=== PATIENT | female | born 1980 | race Caucasian/White ===

== ENCOUNTER 2024-05-08 16:45 | Outpatient (RCR) | payer OTHER, SELFPAY | END 2024-06-05 09:45 | disposition home or self-care (01) | PROVIDERS: Visit Provider Orthopaedic Surgery | DX: M25.571 Pain in right ankle and joints of right foot (principal); M72.2 Plantar fascial fibromatosis; Z51.89 Encounter for other specified aftercare | CPT/HCPCS: 97110; 97140; 97161 ==

== ENCOUNTER 2024-12-16 21:46 | Emergency (ER) | payer OTHER, SELFPAY ==
--- OUTSIDE RECORDS SUMMARY | 2024-12-16 21:48 | XMS_ITS | Patient Health Record ---
Author Organization [facility] Address [address] [place] [address] Care Team Providers Care Sanitary Inspector Name Role Phone MarianKrish KhoiRussellRusty Unavailable [phone] Viki Garrison MD Unavailable Unavailable Allergies Allergen (clinical drug ingredient) Drug/Non Drug Allergy documented on EMR Reaction Allergy Type Onset Date Status morphine Morphine Unknown Drug Allergy Active Reason For Referral No Information Medications Medication SIG (Take, Route, Frequency, Duration) Notes Start Date End Date Status DULoxetine HCl 30 MG Capsule Delayed Release Particles 1 capsule Orally Once a day x 1 week, then twice a day; Duration: 30 days 12/22/2022 Active traMADol-Acetaminophen 37.5-325 MG Tablet TAKE 1 TABLET BY MOUTH THREE TIMES DAILY NEEDED FOR PAIN Oral; Duration: 7 Days Active methylPREDNISolone 4 MG Tabl et Therapy Pack FOLLOW PACKAGE DIRECTIONS Oral; Duration: 6 Days Active Meloxicam 7.5 MG Tablet Oral Active LORazepam 0.5 MG Tablet Oral; Duration: 1 Days Active Cyclobenzaprine HCl 5 MG Tablet Oral Active Social History Social History General Social Info Question Answer Notes Opioid Risk Tool Family history of substance abuse? No Personal history of substance abuse? No Age (jaspal box if 16-45)? Yes History of preadolescent sexual abuse? No Psychological disease? No Total score 1 Interpretation Low risk (unlikely to abuse opio ids) Alcohol Screening Did you have a drink containing alco hol in the past year? Yes How often did you have a drink containing alcohol in the past year? Two to four times a month (2 points) How many drinks did you have on a typical day when you were drinking in the past year? 1 or 2 (0 points) How often did you have six or more drinks on one occasion in the past year? Less than monthly (1 point) Points 3 Interpretation Positive Problems Problem Type SNOMED Code ICD Code Onset Dates Problem Status W/U Status Risk Notes Problem Pain of left knee joint (finding) (097622727316532) Pain in left knee (M25.562) Active confirmed Problem Degenerative disc disease (80789814) DDD (degenerative disc disease), lumbar (M51.36) Active confirmed Problem Paresthesia (finding) (44234640) Paresthesia of skin (R20.2) Active confirmed Problem Lumbar radiculopathy (779281957) Lumbar radiculopathy (M54.16) Active confirmed Plan Of Treatment No Information Insurance Providers Payer Name Payer Address Payer Phone Subscriber Number Group Number Insured Name Patient Relationship to Insured Coverage Start Date Coverage End Date [facility] [address] [address] [place] [address] [id number] Cari Miranda Self - patient is the insured [facility] [place] [address] [place] [address] [id number] Cari Miranda Self - patient is the insured Medical (General) History Medical History History ICD Code Genitourinary: Kidney stones Gastrointestinal: Acid reflux/Ulcer Psychology: Anxiety,Depression Surgical History Surgery Date(Month/Year) LASIK eye 2022 2022 Lithotripsy 2016 Kidney Stent 2014 Hospitalization History Reason Date(Month/Year) see surgical history
[2024-12-16 21:58] VITALS: BP 144/94; PULSE 100; RESP 18; TEMP 36.7; O2SAT 99; BMI 25.4
[2024-12-16] MEDS: ERYTHROMYCIN OPHTH OINT 3.5 GM 1 APPLIC EYE-LEFT (22:30)
--- OUTSIDE RECORDS SUMMARY | 2024-12-16 22:38 | XMS_ITS | Continuity of Care Document ---
Author Name [facility] Organization [facility] Care Team Providers Care Brand Marketing Manager Name Role Phone [facility] Unavailable Unavailable Problems Combined list of problems from Department of Defense and Veterans Affairs facilities. It does not include entries that were removed or entered in error. Problem Status Onset Date Problem Type Date of Resolution Comments Source Congestion Active Condition [facility] Daniela-Ariadna erty Cough Active Condition [facility] Ear pain Active Condition [facility] Gestational diabetes mellitus in , unspecified control Active Condition DoD sore throat Inactive Condition DoD visit for: screening exam depression Inactive Condition DoD rhinitis Active Condition DoD routine gynecological exam with cervical pap smear Inactive Condition DoD Administrative Evaluation Services Inactive Condition DoD other specified family circumstances Active Condition DoD normal delivery Inactive Condition DoD indic for care/interven rel to labor/deliv antepartum compl Inactive Condition DoD indication for care or intervention related to labor & deliv Inactive Condition DoD diabetes mellitus gestational antepartum condition or prior complicated delivery Active Condition DoD Patient Education - Diabetes Active Condition DoD Patient Education - Proper Disposal Of Sharp Equipment Active Condition DoD Diabetes Patient Education - Blood Glucose Monitor Home Active Condition DoD glucose intolerance Active Condition Do D marginal placenta previa - antepartum condition / complic Inactive Condition DoD complication: abnormal glucose tolerance, antepartum condition or prior complicated delivery Active Condition DoD nonspecific abnormal findings screening Active Condition DoD Inactive Condition DoD normal Inactive Condition DoD Brace Inactive Condition DoD low implantation of placenta Inactive Condition DoD constipation Inactive Condition DoD lumbago with sciatica Active Condition DoD upper respiratory infection Inactive Condition DoD routine checkup - second trimester Inactive Condition DoD heartburn with regurgitation Active Condition DoD preg complications: antepartum cond or prior comp delivery Inactive Condition DoD anxiety Active Condition DoD complications: mental disorder, antepartum condition or prior complicated delivery Active Condition DoD Patient Counseling: Active Condition Do D Education Initial Visit Active Condition DoD Supervision Of Normal Inactive Condition DoD bereavement without complications loss of child Active Condition DoD spontaneous Inactive Condition DoD Test Positive Inactive Condition DoD allergic reaction Inactive Condition DoD urticaria Active Condition DoD backache Active Condition DoD routine pre-employment screening examination Active Condition DoD visit for: fertility testing Inactive Condition DoD Need For Vaccination Against DTP Inactive Condition DoD depression Active Condition [facility] visit for: administrative purpose Inactive Condition DoD Need For Vaccination Against Influenza Inactive Condition DoD Cervical Pap Smear Inactive Condition Do D routine history and physical adult (18 - 64 yrs) Inactive Condition DoD Medications Combined list of outpatient medications from Department of Defense and Veterans Affairs facilities.Medications provided include 1) outpatient medications from the last 15 months, and 2) patient-reported medications. Medication Details Route Status Indication(s) Patie nt Instructions Prescription Expires Prescription Number Last Dispense Date Ordering Provider Order Date Order Qty Source Augmentin 875 mg-125 mg oral tablet 1 tab(s), Oral, every 12 hr, X 7 days, # 14 tab(s), 0 total refill(s ), Acute, 05/19/21 12:05:00 PM CDT, Pharmacy : [facility] Oral (given by mouth) Complet ed Chronic sinusitis, unspecified 05/19/2021 2 2021 14.0 0089A-A Daniela Arabella cyclobenzap rine 5 mg oral tablet cycloben zaprine 5 mg oral tablet Start Date: 09/12/20 Status: Ordered Medicati on Dispense Status: Complete d Total Allowed Fills: 1 Fills Dispense d: 0 Ordered 2020 No Facilit y Access cyclobenzap rine 5 mg oral tablet cycloben zaprine 5 mg oral tablet Start Date: 12/24/20 Status: Ordered Medicati on Dispense Status: Complete d Total Allowed Fills: 1 Fills Dispense d: 0 Ordered 2020 No Facilit y Access DULoxetine 20 mg oral delayed release capsule DULoxeti ne 20 mg oral delayed release capsule Start Date: 07/11/20 Status: Ordered Medicati on Dispense Status: Complete d Total Allowed Fills: 1 Fills Dispense d: 0 Ordered 2020 No Facilit y Access DULoxetine 30 mg oral delayed release capsule DULoxeti ne 30 mg oral delayed release capsule Start Date: 09/01/20 Status: Ordered Medicati on Dispense Status: Complete d Total Allowed Fills: 1 Fills Dispense d: 0 Ordered 2020 No Facilit y Access DULoxetine 60 mg oral delayed release capsule DULoxeti ne 60 mg oral delayed release capsule Start Date: 12/24/20 Status: Ordered Medicati on Dispense Status: Complete d Total Allowed Fills: 1 Fills Dispense d: 0 Ordered 2020 No Facilit y Access ibuprofen 800 mg oral tablet 1 tab(s), Oral, every 8 hr, # 30 tab(s), 0 total refill(s ), Acute, 05/12/21 11:00:00 PM CDT, Pharmacy : [facility] Oral (given by mouth) Complet ed 05/13/2021 2 2021 30.0 0089A-A [facility] [place] meloxicam 15 mg oral tablet meloxica m 15 mg oral tablet Start Date: 01/19/21 Status: Ordered Medicati on Dispense Status: Complete d Total Allowed Fills: 1 Fills Dispense d: 0 Ordered 2020 No Facilit y Access meloxicam 15 mg oral tablet meloxica m 15 mg oral tablet Start Date: 10/26/20 Status: Ordered Medicati on Dispense Status: Complete d Total Allowed Fills: 1 Fills Dispense d: 0 Ordered 2020 No Facilit y Access meloxicam 15 mg oral tablet meloxica m 15 mg oral tablet Start Date: 08/27/20 Status: Ordered Medicati on Dispense Status: Complete d Total Allowed Fills: 1 Fills Dispense d: 0 Ordered 2020 No Facilit y Access methylPREDN ISolone 4 mg oral tablet methylPR EDNISolo ne 4 mg oral tablet Start Date: 09/12/20 Status: Ordered Medicati on Dispense Status: Complete d Total Allowed Fills: 1 Fills Dispense d: 0 Ordered 2020 No Facilit y Access omeprazole 20 mg oral delayed release capsule omeprazo le 20 mg oral delayed release capsule Start Date: 12/24/20 Status: Ordered Medicati on Dispense Status: Complete d Total Allowed Fills: 1 Fills Dispense d: 0 Ordered 2020 No Facilit y Access ondansetron 4 mg oral tablet, disintegrat ing ondanset dwayne 4 mg oral tablet, disinteg rating Start Date: 12/24/20 Status: Ordered Medicati on Dispense Status: Complete d Total Allowed Fills: 1 Fills Dispense d: 0 Ordered 2020 No Facilit y Access Robitussin Cough + Chest Congestion DM Maximum Strength 10 mg-200 mg oral capsule 2 cap(s), Oral, every 4 hr, # 30 cap(s), 0 total refill(s ), Acute, Pharmacy : [facility] Oral (given by mouth) Complet ed Chronic sinusitis, unspecified 05/13/2021 2 2021 30.0 0089A-A [facility] [facility] Allergies, Adverse Reactions, Alerts Combined list of allergies from Department of Defense and Veterans Affairs facilities. It does not include entries that were removed or entered in error. Substance Category Reaction Severity Reaction type Status Date Reported Comments Source No Known Allergies Drug allergy (disorder) active 05/18/2013 [facility] Immunizations Combined list of available immunizations from the Department of Defense and Veterans Affairs facilities. Immunization Series Date Given Administered By Site Reaction Lot Number CVX Code Drug Envelope Stamping Machine Operator Status Comments Source tetanus, diphtheria, acellular pertu is 2014 zYueef t Arm [id number] 115 GlaxoSmithKli ne complet ed tetanus, diphtheri a, acellular pertussis 11/28/14 Given Ambulat ory Pharmac y influenza, injectable, quadrivalent- pf 2014 zzLef t Arm [id number] 150 GlaxoSmithKli ne complet ed influenza , injectabl e, quadrival ent-pf 11/28/14 Given Ambulat ory Pharmac y tetanus toxoid, reduced diphtheria toxoid, and acellular pertu is vaccine, adsorbed 1 2014 PAL CERVANTES [id number] 115 [employer] ([facility]) complet ed tetanus toxoid, reduced diphtheri a toxoid, and acellular pertussis vaccine, adsorbed DoD Influenza, injectable, quadrivalent, preservative free 1 2014 PAL CERVANTES [id number] 150 [employer]Kline ([facility]) complet ed Influenza , injectabl e, quadrival ent, preservat ree free DoD tuberculin purified protein derivative 2011 zzLef t Arm [id number] 96 sanofi pasteur complet ed tuberculi n purified protein derivativ e 09/07/11 Given Ambulat ory Pharmac y tuberculin skin test; purified protein derivative solution, intradermal 0 2011 Unknown, Provider [id number] 96 Sanofi Pasteur ([facility]) complet ed tuberculi n skin test; purified protein derivativ e solution, intraderm al DoD tetanus, diphtheria, acellular pertu is 2011 [facility] Arm [id number] 115 sanofi pasteur complet ed tetanus, diphtheri a, acellular pertussis 04/03/11 Given Ambulat ory Pharmac y tetanus toxoid, reduced diphtheria toxoid, and acellular pertu is vaccine, adsorbed 0 2011 Unknown, Provider [id number] [id number] 115 Sanofi Pasteur ([facility]) complet ed tetanus toxoid, reduced diphtheri a toxoid, and acellular pertussis vaccine, adsorbed DoD influenza virus vaccine,split 2010 [facility] Arm [id number] 15 sanofi pasteur complet ed influenza virus vaccine,s plit 12/25/10 Given Ambulat ory Pharmac y influenza virus vaccine, split virus (incl. purified surface antigen)-reti red CODE 0 2010 Unknown, Provider [id number] Sanofi Pasteur ([facility]) complet ed influenza virus vaccine, split virus (incl. purified surface antigen)- retired CODE DoD Vital Signs Combined list of inpatient and outpatient Vital Signs from Department of Defense and Veterans Affairs, ranging from 12 months to all on record, depending upon the facility. Vital Sign Value Date Comments Source Respiratory Rate 18 br/min 05/12/2021 16:11:00 [facility] [employer] [employer] Temperature Tympanic 36.3 Loretta 05/12/2021 16:11:00 [facility] Systolic Blood Pressure 135 mm[Hg] 05/12/2021 16:11:00 [facility] [facility] Diastolic Blood Pressure 92 mm[Hg] 05/12/2021 16:11:00 [facility] [employer] Peripheral Pulse Rate 96 bpm 05/12/2021 16:11:00 [facility] [facility] Encounters Combined list of: 1) Encounters from Department of Veterans Affairs facilities going backup to the last 18 months, not all VA inpatient encounters are included; 2) Encounters from the Department of Defense facilities going backup to 280 months. Location Location Details Encounter Type Encounter Number Reason For Visit Attending Provider ADM Date DC Date Status Disposition Source [place] OUTPATIENT [id number] physica l/intia l DOMINGO REYES 12/25 Released w/o Limitations [place] [facility] [place] TELE CONSULT [id number] Psych referra l MENDY FERNANDEZ 01/08 [place] for Appointment [place] [facility] [place] [facility] [facility] [place] [facility] TELE CONSULT [id number] medicat ion evaluat ion DOMINGO REYES 02/11 [place] [place] [facility] [place] [facility] OUTPATIENT [id number] IMMS DOMINGO REYES 04/03 Released w/o Limitations [place] [place] [facility] OUTPATIENT [id number] Fertili zation Check up DOMINGO REYES 06/09 Released w/o Limitations [place] [place] [place] [facility] [facility] OUTPATIENT [id number] EMPLOYM ENT LETICIA FAULKNER 09/06 Released w/o Limitations [place] [place] [facility]Daysi gency Room[facility] OUTPATIENT [id number] ARIK DUNN 09/12 Released w/o Limitations [place] [facility]Em ergency [facility]) [place] [place] [facility] OUTPATIENT [id number] out-domi ak od sussy/f eet anjali /ANG Interiano 09/13 Released w/o Limitations [place] [facility] [place] [facility] [place] TELE CONSULT [id number] Pregnan cy test positiv e DAREK ROQUE 11/03 [place] [place] [facility] [place])([facility] gen Room) OUTPATIENT [id number] NILDA CARRANZA 11/07 Released w/o Limitations [place] ([facility])( ergency Room) [place] OUTPATIENT [id number] f/u SAB//Wo ANGELA Morse PE 11/10 Released w/o Limitations [place] [place] [facility] [place] TELE CONSULT [id number] Notes Entered by: DAREK BERGMAN 12 Jul 2012 1041 ------- ------- ------- ------- -- Pregnan cy test positiv e DAREK ROQUE 07/12 [place] [place])(Obst etrics [facility]) OUTPATIENT [id number] Pregnan cy Test Positiv e OMA GALEANA 07/19 Released w/o Limitations [place] ([facility])([facility]) [place])([facility] etrics [facility]-Con) TELE CONSULT [id number] Notes Entered by: JONAH GREY 04 Aug 2012 0958 ------- ------- ------- ------- -- edc 30 Feb c/o pubic bone pain after bowling , denies painful voiding , JONAH GREY 08/04 Released to Self Care [place])(Ob stetric s T-Con) [place] [facility] OB [facility]) OUTPATIENT [id number] NOB PE w/LMP 06/02/12 KUMAR 03/09/13 @ 11 weeks Thank you FERNANDO MCGREGOR 08/22 Released w/o Limitations [place] [facility]) [place] [facility])([facility]) OUTPATIENT [id number] 16 wk f/u, kumar Feb ROGELIO GROVER 09/22 Released w/o Limitations [place] [facility]) [place] etrics T-Con) TELE CONSULT [id number] Notes Entered by: JONAH GREY 24 Oct 2012 0858 ------- ------- ------- ------- -- edc 30 Feb c/o sinus congest ion, no r/w otc rx, c/o diarrhe a, nausea, JONAH GREY 10/24 Referred for Appointment [place])(Ob rusttric s T-Con) [place])([facility] etrics [facility]) OUTPATIENT [id number] edc 30 Feb c/o sinus congest ion, no r/w otc rx, c/o diarrhe a, nausea, RAMON WORRELL Olive 10/24 Released w/o Limitations [place] [facility])(Ob [facility]) [place] [facility])([facility]) OUTPATIENT [id number] kumar mar 09 22 wks f/u SARTHAK MEYER 11/03 Released w/o Limitations [place] [facility])([facility]) [place])(Orth opedics) OUTPATIENT [id number] Materni ty Belt x1 DOMINGO HAYDEN 11/10 Released w/o Limitations [place])(Or thopedi cs) [place])([facility]i [facility]) OUTPATIENT [id number] MARY TRUONG 11/17 Released w/o Limitations [place] [facility] [place])([facility] OB [facility]) TELE CONSULT [id number] Notes Entered by: VINEET MEYER 11 Dec 2012 1109 ------- ------- ------- ------- -- ELEVATE D ONE HOUR GCT SARTHAK MEYER 12/11 [place]) [place])([facility]) OUTPATIENT [id number] 28 wk f/u, kumar 30 CLEMENTINA Wagner 12/14 Released w/o Limitations [place]) [place]) TELE CONSULT [id number] Notes Entered by: VINEET MEYER 17 Dec 2012 1154 ------- ------- ------- ------- -- MARGINA L PLACENT A PREVIA SARTHAK MEYER 12/17 [place] ([facility] [facility]) [place])(Ante - in L&D) TELE CONSULT [id number] Notes Entered by: VINEET MEYER 27 Dec 2012 1347 ------- ------- ------- ------- -- FOLLOW UP FOR MARGINA L PREVIA SARTHAK MEYER 12/27 [place] ([facility])(An te-Part um in L&D) [place])(Obst etrics [facility]) OUTPATIENT [id number] Notes Entered by: CHAPIN RITCHIE 04 Jan 2013 0835 ------- ------- ------- ------- -- JANET Plaza 01/04 Released w/o Limitations [place])(Ob stetric s -[facility]) [place])([facility] OB [facility]) OUTPATIENT [id number] EDC:Feb WEEKS CLEMENTINA MARTINES 01/13 Released w/o Limitations [place] [facility])([facility] OB [facility]) [place] [facility])([facility]) OUTPATIENT [id number] 36 WK F/U, KUMAR Feb CLEMENTINA MARTINES 02/10 Released w/o Limitations [place] [facility])([facility] OB [facility]) [place] [facility])(Obst etrics T-Con) TELE CONSULT [id number] Notes Entered by: JONAH GREY 22 Feb 2013 0807 ------- ------- ------- ------- -- edc Feb c/o sonali garcia , states abd has remaine d tight since 299 JONAH GREY 02/22 Immediate Referral [place])(Ob stetric s T-Con) [place] [facility])(Ante - in L&D) OUTPATIENT [id number] Notes Entered by: DELISA GAMEZ 22 Feb 2013 0939 ------- ------- ------- ------- -- pt JACQUELYN French 02/22 Released w/o Limitations [place] [facility])(An te-Part um in L&D) [place] [facility]) OUTPATIENT [id number] 38 WK F/U, KUMAR Feb ADILSON PAINTING 02/24 Released w/o Limitations [place] [facility])([facility] OB [facility]) [place] [facility])([facility] OB [facility]) TELE CONSULT [id number] Notes Entered by: ANGELA SALAZAR 27 Feb 2013 1543 ------- ------- ------- ------- -- repeat u/s for CLEMENTINA Maya Ron 02/27 [place] ([facility])([facility] OB [facility]) [place])([facility]) OUTPATIENT [id number] 39 WK F/U, KUMAR Feb MITCHSARTHAK CAMP CLARI 03/03 Released w/o Limitations [place])([facility]) [facility] DIRECT TO MTF FROM OTHER THAN ER OR APU [id number] EMILY GLASS Yannick 03/09 DISCHARGED HOME [facility] [place])(Ante - in L&D) OUTPATIENT [id number] Notes Entered by: DAXA JEFFERY 09 Mar 2013 1022 ------- ------- ------- ------- -- pt says ctx 2-3 min apart and EMILY Roman 03/09 Admitted [place] ([facility])(An te-Part um in L&D) [place])(Gene ral Surgery) INPATIENT [id number] Notes Entered by: ADELINA CALLEJAS 09 Mar 2013 1425 ------- ------- ------- ------- -- labor pain BRYCE GEIGER 03/09 Inpatient- Still a Patient [place] ([facility])(Ge neral Surgery ) [place])(Obst etrics -[facility]) TELE CONSULT [id number] Notes Entered by: OSMAN IRBY 20 Mar 2013 1619 ------- ------- ------- ------- -- PP JANET Flannery 03/20 Referred for Appointment [place])(Ob stetric s [facility]) [place] OUTPATIENT [id number] PP checkup MELANY ALBRECHT S 04/27 Released w/o Limitations [place]) [place]) OUTPATIENT [id number] SERGIO Roper 05/15 Released w/o Limitations [place]) [place]) OUTPATIENT [id number] Notes Entered by: BONITA STEVEN 16 May 2013 1354 ------- ------- ------- ------- -- STREP SERGIO RICH 05/16 Released w/o Limitations [place] [place]) TELE CONSULT [id number] Notes Entered by: ABHINAV HODGSON I 27 Jun 2013 1003 ------- ------- ------- ------- -- Relay Health - Lactati on Issue TOREY HODGSON I 06/27 [place] [place]) OUTPATIENT [id number] ft pain MELANY ALBRECHT S 07/28 Released w/o Limitations [place]) [place]) TELE CONSULT [id number] Notes Entered by: NAZ MALONEY 25 Sep 2013 1648 ------- ------- ------- ------- -- ANG Douglas 09/25 [place] [place] OUTPATIENT [id number] back/hi p pain ANGELA MOJICA 05/15 Released w/o Limitations [place]) [place]) TELE CONSULT [id number] Notes Entered by: KRYSTINA MONROE 13 Jun 2014 1531 ------- ------- ------- ------- -- x ray results ANGELA MOJICA 06/13 [place]) [place]) TELE CONSULT [id number] Notes Entered by: BONITA STEVEN 21 Jun 2014 1533 ------- ------- ------- ------- -- hcg/8 days late MELANY ALBRECHT 06/21 [place] [place]) OUTPATIENT [id number] f/u back and hip pain MELANY ALBRECHT S 06/21 Released w/o Limitations [place]) [place])([facility]) OUTPATIENT [id number] est ISA Obrien 07/03 Released w/o Limitations [place]) [place])([facility]) OUTPATIENT [id number] Reporte d home pregnan cy test was positiv e EDC:FEB 7 WEEKS TUYET ROSALES 07/03 Released w/o Limitations [place])([facility]) [place])([facility] Clinic) OUTPATIENT [id number] new ob physica Feb 2015 CAROLYN MAIN Yareli 08/02 Released w/o Limitations [place] [facility])([facility] OB [facility]) [place] [facility])(Mate rnal Med) OUTPATIENT [id number] ELDERLY MULTIGR [place] - ANTEPAR TORRIE CONDITI ON OR COMPLIC ATION GAEL AMIN 08/15 Released w/o Limitations [place] [facility])(Ma ternal Med) [place] [facility])(Mate rnal Med) TELE CONSULT [id number] Notes Entered by: GAEL AMIN 21 Aug 2014 1057 ------- ------- ------- ------- -- lab results GAEL AMIN 08/21 [place] ([facility])(Ma ternal Med) [place] [facility])([facility] OB Clinic) OUTPATIENT [id number] kumar;5ja n16 MAINCAROLYN BURT Yareli 09/03 Released w/o Limitations [place] [facility] [facility] [place] [facility])(Obst etrics T-Con) TELE CONSULT [id number] TUYET ROSALES 09/21 Referred for Appointment [place] [facility])([facility] T-Con) [facility] [facility])(Obst etrics -[facility]) OUTPATIENT [id number] 19 3/7 wks c/o back spasms; reinjur ed bk; d/c from PT x2-3wks ago; no meds PARMINDER SANCHEZ 09/21 Released w/o Limitations [place] [facility]) [place] [facility])(Mate rnal Med) OUTPATIENT [id number] EDC 5 FEBAURY 15; PT RESCHED ULED APPT GAEL AMIN 09/21 Released w/o Limitations [place] ([facility])(Nd ternal Med) [place] [facility])(Ante - in L&D) OUTPATIENT [id number] Notes Entered by: Sony INMAN 04 Oct 2014 1028 ------- ------- ------- ------- -- ashley vidal with kleber on CAROLYN MAIN 10/04 Released w/o Limitations [place] ([facility])(An te-Part um in L&D) [place] ([facility])(Ante - in L&D) OUTPATIENT [id number] Notes Entered by: Sony INMAN 13 Oct 2014 1334 ------- ------- ------- ------- -- right flank pain CAROLYN MAIN 10/13 Released w/o Limitations [place] ([facility])(An te-Part um in L&D) [place] ([facility])(Obst etrics T-Con) TELE CONSULT [id number] Notes Entered by: STEFANI DECKER 22 Oct 2014 0828 ------- ------- ------- ------- -- [id number] with KUMAR 13 Feb 2015 calling with c/o BLAKE Hernandez 10/22 Released to Self Care [place] ([facility])(Ob stetric s T-Con) [place] ([facility])(Ante - in L&D) OUTPATIENT [id number] Notes Entered by: Sony INMAN 22 Oct 2014 1228 ------- ------- ------- ------- -- sophie vidal and ROGELIO Stanford 10/22 Released w/o Limitations [place] ([facility])(An te-Part um in L&D) [place] [facility])([facility] OB [facility]) OUTPATIENT [id number] EDC:MAR 03 WEEKS CAROLYN MAIN 10/25 Released w/o Limitations [place] [facility])([facility]) [place] [facility] TELE CONSULT [id number] Notes Entered by: Ron GARDUNO 02 Nov 2014 1236 ------- ------- ------- ------- -- CAROLYN Marcelino 11/02 [place] [facility]) [place] [facility]te - [facility] L&D) OUTPATIENT [id number] Notes Entered by: NAZ ERICKSON 05 Nov 2014 0328 ------- ------- ------- ------- -- contrac tions every 15 minutes PARMINDER SANCHEZ 11/05 Released w/o Limitations [place] ([facility])(An te-Part um in L&D) [place] [facility]) OUTPATIENT [id number] kumar;5ja n16 CAROLYN MAIN 11/22 Released w/o Limitations [place] [facility]) [place] ([facility])(Outp t Nutrition Clinic) OUTPATIENT [id number] GDM JAMI GRIDER 11/28 Released w/o Limitations [place] [facility]Ou tpt Nutriti on Clinic) [place] [facility] [id number] Notes Entered by: KEVYN SHERMAN 28 Nov 2014 1347 ------- ------- ------- ------- -- GDM LAURA Caicedo 11/28 Released w/o Limitations [place] ([facility])(Ob stetric [facility]) [place] ([facility])(Ruben rgy) OUTPATIENT [id number] Notes Entered by: ROGELIO GRIER 28 Nov 2014 1437 ------- ------- ------- ------- -- t dap and flu shot GAYLE ARRIETA L 11/28 Released w/o Limitations [place] ([facility])(Darrius lerjoselito) [place] ([facility])(Teto rnal Med) OUTPATIENT [id number] 10-12 WK F/U FOR GROWTH; EDC FEBRUARY 23 BRENNANGAEL Yannick 12/04 Released w/o Limitations [place] ([facility])(Nd ternal Med) [place] ([facility])([facility] - OB Clinic) OUTPATIENT [id number] edc Feb CAROLYN MAIN 12/06 Released w/o Limitations [place] ([facility])([facility] OB [facility]) [place] ([facility])(Obst etrics T-Con) TELE CONSULT [id number] Notes Entered by: JONAH GREY 25 Dec 2014 1302 ------- ------- ------- ------- -- EDCC Feb C/O LOWER BACK PAIN, CRAMPIN G, DENIES LOF, DFM JONAH GREY 12/25 Immediate Referral [place] ([facility])(Ob stetric s T-Con) [place] ([facility])(Ante - in L&D) OUTPATIENT [id number] pt says gabriela, ctx and DFM EGRALDO WELLS 12/25 Released w/o Limitations [place] ([facility])(An te-Part um in L&D) [place] ([facility])([facility] OB [facility]) OUTPATIENT [id number] 32wks fu kumar [id number] KAY MACHADO 12/27 Released w/o Limitations [place] ([facility])([facility]) [place] ([facility])(Ante - in L&D) OUTPATIENT [id number] Notes Entered by: TATE KEENAN E 28 Dec 2014 0942 ------- ------- ------- ------- -- severe kidney pain and difficu lty voiding BETTY STEVENS S 12/28 Released w/o Limitations [place] ([facility])(An te-Part um in L&D) [place] [facility])(Ante - in L&D) OUTPATIENT [id number] Severe kidney stones JACQUELYN MCINTOSH 01/02 Released w/o Limitations [place] ([facility])(An te-Part um in L&D) [place] [facility])(Ante - in L&D) OUTPATIENT [id number] Notes Entered by: Konstantin CASE 04 Jan 2015 2335 ------- ------- ------- ------- -- kidney pain TINYLVEY CLARK Yannick 01/05 Released w/o Limitations [place] ([facility])(An te-Part um in L&D) [place] [facility])(Obst etrics T-Con) TELE CONSULT [id number] Notes Entered by: JONAH GREY 07 Jan 2015 0831 ------- ------- ------- ------- -- EDC 6 FEB F/U FROM KIDNEY PAIN, [place] FOR UTI JONAH GREY 01/07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 04/03/14). [facility] Influenza Split Virus Vaccine IM Preserv Free 0.5mL Dosage Quadrivalent 2014 PAL CERVANTES Influenza Seasonal, injectable quadrivalent - preservative free; Series #: 1; .5 mL; IM; Left Arm; Mfg: [employer]; Lot: [id number]; VIS given (Mitra: 09/14/2014). [facility] Immunization Administration By Injection, One Vaccine Immunization Administration By Injection, One Vaccine 36882 2014 HELENPAL BHATIA [facility] Immunization Administration By Injection, Each Additional Vaccine Immunization Administration By Injection, Each Additional Vaccine 18637 2014 PAL CERVANTES [facility] Medical Nutrition Therapy Group (2 or More Individuals) Each 30 Minutes Medical Nutrition Therapy Group (2 or More Individuals) Each 30 Minutes 97797 2014 JAMI GRIDER 60 minutes [facility] Patient Counseling Medical Management Two To Four Patients Patient Counseling Medical Management Two To Four Patients 23932 2014 PEBBLES FARRAR [facility] OB Services Antepartum Care Only Subsequent Single Visit OB Services Antepartum Care Only Subsequent Single Visit 0502F 2014 CAROLYN MAIN Vaginal [place] Smear Vaginal [place] Smear 95605 2014 ROGELIO GROVER [facility] Transabd Ultrasound W/ Exam Single Or First Gestation Transabd Ultrasound W/ Exam Single Or First Gestation 58957 2014 GAEL AMIN OB Services Antepartum Care Only Subsequent Single Visit OB Services Antepartum Care Only Subsequent Single Visit 0502F 2014 CAROLYN MAIN US OB Fetus Nuchal Translucency 1st Trimester Single / First Gestation US OB Fetus Nuchal Translucency 1st Trimester Single / First Gestation 74513 2014 GAEL AMIN Transabdominal Ultrasound Single Or First Gestation Transabdominal Ultrasound Single Or First Gestation 16115 2014 GAEL AMIN OB Services Antepartum Care Only First Visit, With Report OB Services Antepartum Care Only First Visit, With Report 0500F 2014 CAROLYN MAIN Ultrasound Obstetric Limited Evaluation Ultrasound Obstetric Limited Evaluation 54116 2014 CAROLNY MAIN Ultrasound Obstetric Limited Evaluation Ultrasound Obstetric Limited Evaluation 50833 2014 ISA JAY [facility] Psychotherapy Individual Approximately 30 Minutes 2013 CUCO WILBURN [facility] Screening papanicolaou smear; obtaining, preparing and conveyance of cervical or vaginal smear to laboratory Screening papanicolaou smear; obtaining, preparing and conveyance of cervical or vaginal smear to laboratory Q0091 2013 MELANY ALBRECHT Dominic [facility] Cervical Pap Smear Cervical Pap Smear 23981 2013 ALBRECHTKALEB ROJASYuval Alfaro [facility] Psychotherapy Individual Approximately 30 Minutes 2013 CUCO WILBURN [facility] Psychotherapy Individual Approximately 30 Minutes 2013 CUCO WILBURN [facility] Psychotherapy Individual Approximately 30 Minutes 2013 CUCO WILBURN [facility] Psychotherapy Individual Approximately 30 Minutes 2013 CUCO WILBURN [facility] Psychiatric Diagnostic Evaluation Psychiatric Diagnostic Evaluation 29860 2013 CUCO WILBURN Epidural Anesthesia For Labor And Vaginal Delivery Epidural Anesthesia For Labor And Vaginal Delivery 14196 2013 BRYCE GEIGER EPIDURAL PLACEMENT NOTE Patient ID,chart and labs reviewed consent confirmed.Neurax ial anesthesthesia technique to include risks and benefits discussed and pt. understands. Pt. denies pre-existing disease, condition or surgery that would preclude neuraxial anesthesia. IV in place B/P and oximeter attached suction and oxygen available. Sitting position, prep with chloraprep x 1, local with 1% lido at L2-3 interspace, 18gauge tuohy place using MESERET technique with saline. Needle place to 5cm continuous epidural cath to 10cm, test dose with lido1.5% 3ml neg. cath secured and sterile dressing applied . patient tolerated procedure well and no complications. 10ml bolus of bupivicaine 0.125% with fentanyl 2mcg/ml. Preprocedure diagnosis = labor Pstprocedure diagnosis = labor analgesia Findings = none EBL = minimal Specimen = none Yordy Geiger CRNA [facility] OB Services Antepartum Care Only Subsequent Single Visit OB Services Antepartum Care Only Subsequent Single Visit 0502F 2013 SARTHAK MEYER [facility] OB Services Antepartum Care Only Subsequent Single Visit OB Services Antepartum Care Only Subsequent Single Visit 0502F 2013 ADILSON PAINTING [facility] OB Services Antepartum Care Only Subsequent Single Visit OB Services Antepartum Care Only Subsequent Single Visit 0502F 2013 CLEMENTINA MARTINES [facility] OB Services Antepartum Care Only Subsequent Single Visit OB Services Antepartum Care Only Subsequent Single Visit 0502F 2012 CLEMENTINA MARTINES [facility] OB Services Antepartum Care Only Subsequent Single Visit OB Services Antepartum Care Only Subsequent Single Visit 0502F 2012 CLEMENTINA MARTINES [facility] Lumbar-sacral orthosis, flexible, provides lumbo-sacral support, posterior extends from sacrococcygeal junction to T-9 vertebra, produces intracavitary pre ure to reduce load on the intervertebral discs, includes straps, closures, may include stays, shoulder straps, pendulous abdomen design, prefabricated, [id number] Lumbar-sacral orthosis, flexible, provides lumbo-sacral support, posterior extends from sacrococcygeal junction to T-9 vertebra, produces intracavitary pressure to reduce load on the intervertebral discs, includes straps, closures, may include stays, shoulder straps, pendulous abdomen design, prefabricated, [id number] L0628 2012 DOMINGO HAYDEN maternity support [facility] OB Services Antepartum Care Only Subsequent Single Visit OB Services Antepartum Care Only Subsequent Single Visit 0502F 2012 SARTHAK MEYER [facility] OB Services Antepartum Care Only Subsequent Single Visit OB Services Antepartum Care Only Subsequent Single Visit 0502F 2012 DOMINGO LEWIS [facility] Ultrasound Obstetric Limited Evaluation Ultrasound Obstetric Limited Evaluation 26695 2012 DOMINGO LEWIS [facility] Ultrasound Obstetric Limited Evaluation Ultrasound Obstetric Limited Evaluation 82616 2012 ROGELIO GROVER [facility] OB Services Antepartum Care Only Subsequent Single Visit OB Services Antepartum Care Only Subsequent Single Visit 0502F 2012 ROGELIO GROVER [facility] OB Services Antepartum Care Only First Visit, With Report OB Services Antepartum Care Only First Visit, With Report 0500F 2012 FERNANDO MCGREGOR [facility] Psychotherapy Individual Approximately 30 Minutes 2012 [facility] [place] DoD Psychotherapy Individual Approximately 30 Minutes 2012 [facility] Pulse Oximetry Pulse Oximetry 64578 2011 ADILSON BAJWA 98% DoD Psychotherapy Individual Approximately 30 Minutes Psychotherapy Individual Approximately 30 Minutes 93559 2011 [facility] [place] Skin Test Anergy Tuberculin Intradermal Skin Test Anergy Tuberculin Intradermal 04726 07/30/ 2012 LETICIA JAMES [facility] Psychotherapy Individual Approximately 45 Minutes Psychotherapy Individual Approximately 45 Minutes 47369 2011 CUCO WIL[place]URN [facility] Psychotherapy Individual Approximately 45 Minutes Psychotherapy Individual Approximately 45 Minutes 61598 2011 CUCO WIL[place]URN [facility] Psychotherapy Individual Approximately 45 Minutes Psychotherapy Individual Approximately 45 Minutes 43092 2011 CUCO WILBURN [facility] Psychotherapy Individual Approximately 45 Minutes Psychotherapy Individual Approximately 45 Minutes 19045 2011 CUCO WIL[place]URN [facility] Tdap Vaccine Seven Years Of Age And Above Tdap Vaccine Seven Years Of Age And Above 00902 2011 NAZ MALONEY R 0.5ml IM right deltoid [facility] Immunization Administration By Injection, One Vaccine Immunization Administration By Injection, One Vaccine 81439 2011 NAZ MALNOEY R [facility] Psychotherapy Individual Approximately 45 Minutes Psychotherapy Individual Approximately 45 Minutes 35141 2011 CUCO WILBURN [facility] Psychiatric Diagnostic Evaluation Comprehensive Examination Psychiatric Diagnostic Evaluation Comprehensive Examination 11005 2011 CUCO WIL[place]URN [facility] Influenza Split Virus Vaccine 0.5mL Dosage Intramuscular 2010 MENDY FERNANDEZ Questionnaire completed. 0.5ml IM into right deltoid. LOT# [id number], EXP: [id number]. Patient instructed to wait 30 minutes post injection for observation and monitoring. Patient tolerated procedure well with no adverse effects prior to leaving clinic. [facility] Immunization Administration By Injection, One Vaccine Immunization Administration By Injection, One Vaccine 86638 2010 MENDY FERNANDEZ Questionnaire completed. 0.5ml IM into right deltoid. LOT# [id number], EXP: [id number]. Patient instructed to wait 30 minutes post injection for observation and monitoring. Patient tolerated procedure well with no adverse effects prior to leaving clinic. [facility] Cervical Pap Smear Cervical Pap Smear 71319 2010 MENDY FERNANDEZ [facility] Screening papanicolaou smear; obtaining, preparing and conveyance of cervical or vaginal smear to laboratory Screening papanicolaou smear; obtaining, preparing and conveyance of cervical or vaginal smear to laboratory Q0091 2010 MENDY FERNANDEZ [facility] Social History Combined list of available smoking, tobacco, and other social history from [facility] facilities. Social History Type Response Date Comment [facility] e Sex Representation Female (finding) 02/05/2021 Unknown Organization Tobacco Exposure to Secondhand Smoke: No. Never-cigarette user Cigarette use:. Never-other tobacco user (not cigarettes) Other Tobacco use:. Ambulatory Pharmacy Sexual Orientation Ambula tory Pharmacy Gender identity Ambulator y Pharmacy This section is an empty social history section. [facility] Assessment and Plan Combined list of future care activities from [facility] Defense and Veterans Affairs facilities (e.g., assessment and plan notes, appointments, orders, and referrals). Additional future care activities may be listed in the Plan of Care section. Result Assessment and Plan Date Source Assessment and Plan No data available for this section 12/17/2024 Ambulatory Pharmacy Functional Status Combined list of recent functional and cognitive assessments recorded at [facility] Functional Henderson Measurement (FIM) Scale: 1 = Total Assistance (Subject = 0% +), 2 = Maximal Assistance (Subject = 25% +), 3 = Moderate Assistance (Subject = 50% +), 4 = Minimal Assistance (Subject = 75% +), 5 = Supervision, 6 = Modified Henderson (Device), 7 = Complete Henderson (Timely, Safely). Assessment Date/Time Source Assessment Type Assessment Skill Assessment Score Assessment Details No data available for this section
--- NOTE | 2024-12-16 22:56 | ED.GENADULT ---
HPI - General Adult General Chief complaint: Eye Problems Stated complaint: Left Eye swelling Time Seen by Provider: 12/16/24 22:02 Source: patient Mode of arrival: ambulatory Limitations: no limitations History of Present Illness HPI narrative: 44-year-old female reports that symptoms started with a sore throat about a week ago, lasted 2 days then developed into nasal congestion and sinus drainage. For the past 12 hours, she has had irritation and redness of the left eye, becoming more tender and painful. No vision difficulties over baseline. Some watery drainage, some mild crusting at the right corner. No sensation of foreign body, trauma or injury. Other side feels mildly irritated but is not nearly as red. Has not tried any eyedrops or [id number] treatments. No fever. No prior history of similar symptoms. Has tried some Sudafed to help with the nasal congestion with limited temporary improvement. No severe shortness of breath, no other systemic symptoms. Reports past medical history is benign, no major long-term health problems. Her only home medication is an injectable GLP 1. Denies allergies. Nonsmoker. ROS is notable for the HEENT complains only, otherwise denies times 12 systems today. Related Data Home Medications ?Medication ?Instructions ?Recorded ?Confirmed c-Tirzepatide/Niacinamide 12/16/24 Allergies Allergy/AdvReac Type Severity Reaction Status Date / Time No Known Drug Allergies Allergy Verified 12/16/24 22:30 PFSH PFS Surgical History History of ureter stent H/O lithotripsy ?Z98.890 - Other specified postprocedural states (ICD-10) Social History Smoking Status: Unknown if ever smoked Do you use any of these nicotine containing products: None Second hand tobacco smoke exposure: No How often do you have a drink containing alcohol: never AUDIT-C Alcohol total score: 0 Non-prescribed substance use: denies use service: No Exam Const: Vital Signs, click to edit/add: Vital Signs - 24 hr 12/16/24 21:58 Temperature 98.1 F Pulse Rate [Left P ulse Oximeter] 100 Respiratory Rate 18 Blood Pressure [Ri ght Upper Arm] 144/94 H Pulse Oximetry 99 Oxygen Delivery Me thod Room Air Documenting provider has reviewed patient's vital signs: yes Common normals: no apparent distress General appearance: cooperative and well kempt HENMT: Common normals: normocephalic, moist oral mucous membranes and oropharynx normal Head and scalp: normocephalic Other: Swollen nasal mucosa with rhinorrhea noted. Postnasal drip noted in the oropharynx, oropharynx otherwise normal. Eye: Other: Visual acuity pretty equal bilaterally. Right conjunctiva is mildly injected, sclera normal with no exudate. Left side has no swelling to the eyelids but does have mild irritation to the conjunctiva and injected sclera. Lacrimal duct and meatus are swollen with mucopurulent drainage. Neck & C-Spine: Common normals: full ROM and no lymphadenopathy General: normal visual inspection Resp: Common normals: normal respiratory effort Effort & inspection: able to speak in complete sentences Psych: Appearance: well kempt Attitude: engaged Activity/motor behavior: appropriate eye contact Insight: insight good Judgement: judgment good Skin: Common normals: no rashes or lesions noted General skin exam: no rashes or lesions noted Course Course ED Course: 44-year-old female with swelling of lacrimal duct, gland, irritation of eyelid after rhino sinus type illness, worsening. Counseled patient this is most likely stemming from an ascending sinus infection. There does not appear to be any major visual acuity problem. Do not see any evidence of foreign body. Will treat with erythromycin eye ointment. Begin amoxicillin for sinusitis, 1000 b.i.d.. Okay to use Tylenol and ibuprofen as needed for mild discomfort but encourage Flonase nasal spray to help with sinus drainage. If symptoms not improving in 7 days, would recommend primary care follow-up. Alarm symptoms reviewed that would warrant ED re-evaluation. Vital Signs Vital signs: Initial Vital Signs Temperature 98.1 F 12/16/24 21:58 Temperature Source Temporal Artery Scan 12/16/24 21:58 Pulse Rate 100 12/16/24 21:58 Respiratory Rate 18 12/16/24 21:58 Blood Pressure 144/94 H 12/16/24 21:58 Blood Pressure Mean 110 H 12/16/24 21:58 Blood Pressure Position Sitting 12/16/24 21:58 Pulse Oximetry 99 12/16/24 21:58 Oxygen Delivery Method Room Air 12/16/24 21:58 Vital Signs Temperature 98.1 F 12/16/24 21:58 Pulse Rate 100 12/16/24 21:58 Respiratory Rate 18 12/16/24 21:58 Blood Pressure 144/94 H 12/16/24 21:58 Pulse Oximetry 99 12/16/24 21:58 Oxygen Delivery Method Room Air 12/16/24 21:58 Temperature 98.1 F 12/16/24 21:58 Pulse Rate 100 12/16/24 21:58 Respiratory Rate 18 12/16/24 21:58 Blood Pressure 144/94 H 12/16/24 21:58 Pulse Oximetry 99 12/16/24 21:58 Oxygen Delivery Method Room Air 12/16/24 21:58 Medications Administered Medications: Discontinued Medications Generic Name Dose Route Start Last Admin Trade Name Martellq PRN Reason Stop Dose Admin Erythromycin 1 applic 12/16/24 22:27 12/16/24 22:30 Erythromycin Ophth Oint 3.5 Gm EYE-LEFT 12/16/24 22:28 1 applic ONCE ONE Administration Discharge Plan Discharge Clinical Impression: Infection of lacrimal duct, Sinusitis Patient Disposition: Home w/ Parent or Adult Condition: Stable Instructions: Sinusitis (ED) Additional Instructions: As we discussed, these infections of the eyelid and lacrimal duct can be common, spreading up from a sinus infection. They can be harder to treat than a typical viral sinus infection which typically goes away on its own within a couple of weeks. I would recommend that you use a nasal steroid spray like Flonase 1 spray in each nostril 2 times daily for the next few days. This will decrease swelling and inflammation and allow the duct to drain more easily. Note that you use this in the nose, not the eye. I have started you on some eye ointment, use this 3 times daily for the next 5 days. It does work better if you apply it lying down. Just insert a small amount into the inside corner of the eye, let it work around in the affected area for at least a few minutes. Start oral antibiotics, amoxicillin, 1000 mg twice daily. Think should improve by the time you have completed your antibiotics. If they have not, please make a follow-up appointment with your primary care provider for additional treatment and management. Activity Level: Activity as Tolerated Discharge Diet: Regular Prescriptions: No Action c-Tirzepatide/Niacinamide Follow Up/Referrals: Provider,Not a Local [Primary Care Provider, Family Practice] Stand Alone Forms: MyHealth Info Instructions
== END 2024-12-16 22:42 | disposition home or self-care (01) ==
PROVIDERS: Emergency Provider Family Medicine
DX: H04.332 Acute lacrimal canaliculitis of left lacrimal passage (principal); J32.9 Chronic sinusitis, unspecified
CPT/HCPCS: 99283; A9270